=== PATIENT | female | born 1970 | race Two or more races ===

== ENCOUNTER 2023-08-01 14:20 | Emergency (ER) | payer OTHER ==
[~2023-08-01] VITALS: Ht 157.5 cm; Wt 90.7 kg
[2023-08-01] MEDS ORDERED: SYNTHROID75 MCG PO (14:43)
[2023-08-01] MEDS ORDERED: LEVOXYL75 MCG PO (14:44)
[2023-08-01] MEDS ORDERED: BUTALB/ACETAMINOPHEN/CAFFEINE 1 TAB TABLET PO ONE (17:45)
[2023-08-01] MEDS ORDERED: PIPERACILLIN/TAZOBACTAM SODIUM 3.375 GM VIAL IV ONE (17:45)
== END 2023-08-01 18:57 | disposition home or self-care (01) ==
LOC: ER 14:20
DX: L03.115 Cellulitis of right lower limb (principal); W57.XXXA Bitten or stung by nonvenomous insect and other nonvenomous arthropods, initial encounter; Y93.89 Activity, other specified; Y92.89 Other specified places as the place of occurrence of the external cause

== ENCOUNTER 2023-08-03 14:01 | Emergency (ER) | payer OTHER ==
[~2023-08-03] VITALS: Ht 157.5 cm; Wt 90.7 kg
[~2023-08-03 14:01] MED LIST: LEVOXYL75 MCG PO; SYNTHROID75 MCG PO
[2023-08-03] MEDS ORDERED: 0.9 % SODIUM CHLORIDE 500 ML IV ONE (15:15)
[2023-08-03] MEDS ORDERED: KETOROLAC TROMETHAMINE 30 MG VIAL IV ONE (15:30)
[2023-08-03] MEDS ORDERED: CLINDAMYCIN PHOSPHATE 150 MG/ML (600mg) IV ONE (15:30)
[2023-08-03 15:44] LABS: HEMATOCRIT 39.6 % (36.0-45.00); HEMOGLOBIN 13.5 g/dL (12.0-15.00); MEAN CELL VOLUME 94.1 fL (80.00-100.00); MEAN CORPUSCULAR HEMOGLOBIN 32.1 pg (27.00-32.0); MEAN CORPUSCULAR HGB CONC 34.2 g/dl (32.0-36.0); PLATELET COUNT 306 K/uL (150-450); RED BLOOD COUNT 4.21 M/uL (4.00-6.00)
[2023-08-03 16:10] LABS: URINE APPEARANCE Clear; URINE BILIRRUBIN Negative (NEGATIVE); URINE BLOOD Negative; URINE COLOR Yellow; URINE GLUCOSE Negative (NEGATIVE); URINE LEUKOCYTE Trace; URINE NITRATE Negative; URINE PROTEIN Negative (NEGATIVE); URINE UROBILINOGEN 0.2 E.U./dl
[2023-08-03 16:11] LABS: URINE EPITHELIAL CELLS 14.3 uL (0.0-38.8); URINE RBC 9.1 uL (0.0-20.8); URINE WBC 3.5 uL (0.0-23.2)
[2023-08-03 17:04] LABS: CALCIUM 8.7 mg/dL (8.5-10.1); CREATININE SERUM 0.74 mg/dL (0.55-1.02); GFR 82.74; POTASSIUM 4.1 mEq/L (3.5-5.1)
[2023-08-03] MEDS ORDERED: LEVOFLOXACIN750 MG PO (19:21)
== END 2023-08-03 21:31 | disposition home or self-care (01) ==
LOC: ER 14:01
PROVIDERS: Nurse Practitioner Family
DX: L03.116 Cellulitis of left lower limb (principal); E03.8 Other specified hypothyroidism

== ENCOUNTER 2023-10-23 12:25 | Outpatient (CLI) | payer OTHER ==
[~2023-10-23 12:25] MED LIST changes: +LEVOFLOXACIN750 MG PO
== END 2023-10-23 12:35 | disposition home or self-care (01) ==
LOC: RAD 12:25
PROVIDERS: ATTEND Physical Medicine & Rehabilitation Hospice and Palliative Medicine
DX: M54.50 Low back pain, unspecified (principal); G57.11 Meralgia paresthetica, right lower limb

== ENCOUNTER 2024-04-23 08:58 | Outpatient (CLI) | payer OTHER | END 2024-04-23 09:13 | disposition home or self-care (01) | LOC: RAD 08:58 | PROVIDERS: ATTEND Internal Medicine Cardiovascular Disease | DX: R06.00 Dyspnea, unspecified (principal) ==

== ENCOUNTER 2024-04-27 13:17 | Emergency (ER) | payer OTHER ==
[~2024-04-27] VITALS: Ht 157.5 cm; Wt 77.1 kg
[2024-04-27] MEDS ORDERED: LEVALBUTEROL HCL 1.25 MG/3 ML SOLUTION IH STA (14:27)
[2024-04-27] MEDS ORDERED: HYDROCODONE/CHLORPHEN P-STIREX 5 ML ML PO STA (14:27)
[2024-04-27 15:55] LABS: HEMATOCRIT 41.8 % (36.0-45.00); HEMOGLOBIN 14.1 g/dL (12.0-15.00); MEAN CELL VOLUME 93.2 fL (80.00-100.00); MEAN CORPUSCULAR HEMOGLOBIN 31.5 pg (27.00-32.0); MEAN CORPUSCULAR HGB CONC 33.8 g/dl (32.0-36.0); PLATELET COUNT 222 K/uL (150-450); RED BLOOD COUNT 4.49 M/uL (4.00-6.00); RED CELL DISTRIBUTION WIDTH 12.9 % (11.5-14.5)
[2024-04-27 16:26] LABS: CALCIUM 9.3 mg/dL (8.5-10.1); CREATININE SERUM 1.02 mg/dL (0.55-1.02); GFR 56.91; POTASSIUM 3.82 mEq/L (3.5-5.1)
[2024-04-27 16:39] LABS: URINE APPEARANCE Cloudy; URINE BILIRRUBIN Negative (NEGATIVE); URINE BLOOD NHT; URINE COLOR Dark Yellow; URINE GLUCOSE Negative (NEGATIVE); URINE LEUKOCYTE Large; URINE NITRATE Negative; URINE PROTEIN 30 (NEGATIVE)
[2024-04-27 16:40] LABS: URINE BACTERIA 7156.4 uL (0.0-1933); URINE CAST 6.48 uL (0.0-1.40); URINE RBC 40.5 uL (0.0-20.8); URINE WBC 747.6 uL (0.0-23.2)
[2024-04-27 17:22] LABS: URINE KETONE 40 (NEGATIVE)
[2024-04-27 17:24] LABS: URINE EPITHELIAL CELLS > 201.7 uL (0.0-38.8)
[2024-04-27] MEDS ORDERED: TUSNEL LIQUID178 ML PO (17:37)
[2024-04-27] MEDS ORDERED: OSEL75CA PO (17:37)
[2024-04-27] MEDS ORDERED: OSELTAMIVIR PHOSPHATE 75 MG CAPSULE PO ONE ×2 (17:45)
== END 2024-04-27 17:52 | disposition home or self-care (01) ==
LOC: ER 13:20
PROVIDERS: General Practice
DX: J10.1 Influenza due to other identified influenza virus with other respiratory manifestations (principal); Z20.822 Contact with and (suspected) exposure to COVID-19; E03.9 Hypothyroidism, unspecified; R07.89 Other chest pain

== ENCOUNTER 2024-05-06 10:10 | Outpatient (CLI) | payer OTHER ==
[~2024-05-06 10:10] MED LIST changes: +OSEL75CA PO; +TUSNEL LIQUID178 ML PO
== END 2024-05-06 10:21 | disposition home or self-care (01) ==
LOC: MAMO-SONO 10:10
PROVIDERS: ATTEND Obstetrics & Gynecology
DX: N64.4 Mastodynia (principal)